=== PATIENT | male | born 1950 | race Caucasian/White ===

== ENCOUNTER 2016-09-07 21:34 | Emergency (ER) | payer MEDICARE ==
[2016-09-07] MEDS ORDERED: BABY ASPIRIN 81 MG CHEW PO ONE (21:50)
[2016-09-07] MEDS ORDERED: BABY ASPIRIN 81 MG CHEW ONE (21:57)
[2016-09-07] MEDS ORDERED: Sodium Chloride 0.9% 1000 ML 1,000 ML ONE (21:57)
[2016-09-07] MEDS ORDERED: Sodium Chloride 0.9% 1000 ML 1,000 ML IV SCH (22:00)
--- NOTE | 2016-09-07 22:02 | ERPHSYRPT ---
- History of Present Illness Time Seen by Provider: 09/07/16 21:40 Historian: patient Exam Limitations: no limitations Physician History: ABOUT 1 HOUR AGO PT STARTED WITH SHARP INTERMITTENT LEFT ANTERIOR NON-RADIATING CHEST PAIN WHICH HAS NOW SUBSIDED. PT DENIES DIAPHORESIS, NAUSEA, VOMITING, FEVER; ADMITS TO COUGH FOR THE PAST 2 DAYS PRODUCTIVE OF GABRIEL PHLEGM AND CHRONIC ABDOMINAL PAIN FOR YEARS. Aspirin Treatment Today: 81 mg x 4, provided by ED Allergies/Adverse Reactions: No Known Drug Allergies Allergy (Verified 09/07/16 22:02) Home Medications: Metoprolol Tartrate 25 mg [Lopressor 25MG Tab] 25 mg PO DAILY 09/07/16 [ History] Warfarin Sodium 5 mg [Coumadin 5 MG] 5 mg PO DAILY 09/07/16 [History] - Review of Systems Constitutional: No Fever Respiratory: Cough, No Dyspnea Cardiac: Chest Pain Abdominal/Gastrointestinal: Abdominal Pain, No Nausea, No Vomiting Endocrine: No Excessive Sweating All Other Systems: Reviewed and Negative - Physical Exam General Appearance: alert Eye Exam: PERRL/EOMI Ears, Nose, Throat Exam: pharynx normal, moist mucous membranes, other (CERUMEN OCCLUSION OF RIGHT EAR) Neck Exam: normal inspection Respiratory Exam: lungs clear Cardiovascular Exam: normal heart sounds Gastrointestinal/Abdomen Exam: soft, normal bowel sounds Back Exam: normal range of motion Extremity Exam: normal inspection, No pedal edema Neurologic Exam: alert, cooperative Skin Exam: warm, dry - Course Nursing assessment & vital signs reviewed: Yes EKG Interpreted by Me: RATE (84), Sinus Rhythm, NORMAL AXIS, Non-specific ST Changes - Radiology Exams Chest X-ray Interpretation: Interpreted by me (CM; CONGESTIVE CHANGES.) Ordered Tests: Active Orders 24 hr Category Date Time Status Machine Setter And Repairer STAT Care 09/07/16 21:50 Active EKG-ER Only STAT Care 09/07/16 21:50 Completed EKG-ER Only STAT Care 09/07/16 22:44 Active IV Insertion STAT Care 09/07/16 21:50 Active Oxygen-ED Only NASAL CANNULA 2 lpm Care 09/07/16 21:50 Active Pulse Oximetry (ED) STAT Care 09/07/16 21:50 Active CHEST 1 VIEW (PORTABLE) Stat Exams 09/07/16 21:51 Taken AMYLASE Stat Lab 09/07/16 21:55 Completed CBC W DIFF Stat Lab 09/07/16 21:55 Completed CMP Stat Lab 09/07/16 21:55 Completed LIPASE Stat Lab 09/07/16 21:55 Completed MAGNESIUM Stat Lab 09/07/16 21:55 Completed NT PRO BNP Stat Lab 09/07/16 21:55 Completed PROTIME WITH INR Stat Lab 09/07/16 21:55 Completed PTT Stat Lab 09/07/16 21:55 Completed TROPONIN Q3H Lab 09/07/16 21:55 Completed TROPONIN Q3H Lab 09/08/16 01:00 Ordered TROPONIN Q3H Lab 09/08/16 04:00 Ordered TROPONIN Q3H Lab 09/08/16 07:00 Ordered TROPONIN Q3H Lab 09/08/16 10:00 Ordered UA Stat Lab 09/07/16 21:51 Ordered Urine Triage Profile Stat Lab 09/07/16 21:51 Ordered EKG STAT RT 09/07/16 21:52 Active Medication Summary Generic Name Dose Route Start Last Admin Trade Name Freq PRN Reason Stop Dose Admin Sodium Chloride 1,000 mls @ 100 mls/hr 09/07/16 22:00 09/07/16 22:04 Sodium Chloride 0.9% 1000 Ml IV 10/07/16 21:59 100 mls/hr .Q10H EMERITA Administration Discontinued Medications Generic Name Dose Route Start Last Admin Trade Name Freq PRN Reason Stop Dose Admin Aspirin 324 mg 09/07/16 21:50 09/07/16 22:04 Baby Aspirin 81 Mg Chew PO 09/07/16 21:51 324 mg STAT ONE Administration Aspirin Confirm 09/07/16 21:57 Baby Aspirin 81 Mg Chew Administered 09/07/16 21:58 Dose 324 mg .ROUTE .STK-MED ONE Furosemide 20 mg 09/07/16 22:41 09/07/16 22:48 Lasix 40 Mg/4 Ml IV 09/07/16 22:42 20 mg STAT ONE Administration Furosemide Confirm 09/07/16 22:46 Lasix 40 Mg/4 Ml Administered 09/07/16 22:47 Dose 40 mg .ROUTE .STK-MED ONE Sodium Chloride Confirm 09/07/16 21:57 Sodium Chloride 0.9% 1000 Ml Administered 09/07/16 21:58 Dose 1,000 mls @ ud .ROUTE .STK-MED ONE Lab/Rad Data: Laboratory Result Diagrams 09/07/16 21:55 09/07/16 21:55 Laboratory Results 09/07/16 09/07/16 09/07/16 Range/Units 21:55 21:55 21:55 WBC (4.0-10.5) K/mm3 RBC (4.1-5.6) M/mm3 Hgb (12.5-18.0) gm/dl Hct (42-50) % MCV (78-100) fl MCH (26-32) pg MCHC (32-36) g/dl RDW (11.5-14.0) % Plt Count (150-450) K/mm3 MPV (6-9.5) fl Gran % (36.0-66.0) % Lymphocytes % (24.0-44.0) % Monocytes % (0.0-12.0) % Eosinophils % (0.00-5.0) % Basophils % (0.0-0.4) % Basophils # (0-0.4) INR 3.02 H (0.8-3.0) PTT 33.3 (24.1-36.1) SECONDS Sodium 140 (136-145) mEq/L Potassium 4.4 (3.5-5.1) mEq/L Chloride 106 (98-107) mEq/L Carbon Dioxide 23.9 (21-32) mEq/L Anion Gap 14.3 (5-15) MEQ/L BUN 22 H (9-20) mg/dL Creatinine 1.33 H (0.55-1.30) mg/dl Estimated GFR 57 ML/MIN Glucose 108 (70-110) MG/DL Calcium 8.7 (8.5-10.1) mg/dL Magnesium 1.8 (1.8-2.4) mg/dL Total Bilirubin 0.3 (0.2-1.0) mg/dL AST 35 (15-37) U/L ALT 38 (12-78) U/L Alkaline Phosphatase 65 (46-116) U/L Troponin I 0.055 (0.000-0.056) ng/ml NT-Pro-B Natriuret Pep 7000 H (0-125) pg/ml Serum Total Protein 6.8 (6.4-8.2) gm/dL Albumin 3.4 (3.4-5.0) g/dL Amylase 36 (25-115) U/L Lipase 123 (73-393) U/L 09/07/16 Range/Units 21:55 WBC 8.6 (4.0-10.5) K/mm3 RBC 4.75 (4.1-5.6) M/mm3 Hgb 14.4 (12.5-18.0) gm/dl Hct 43.4 (42-50) % MCV 91.4 (78-100) fl MCH 30.3 (26-32) pg MCHC 33.2 (32-36) g/dl RDW 14.8 H (11.5-14.0) % Plt Count 210 (150-450) K/mm3 MPV 10.4 H (6-9.5) fl Gran % 69.6 H (36.0-66.0) % Lymphocytes % 19.6 L (24.0-44.0) % Monocytes % 7.7 (0.0-12.0) % Eosinophils % 2.8 (0.00-5.0) % Basophils % 0.3 (0.0-0.4) % Basophils # 0.03 (0-0.4) INR (0.8-3.0) PTT (24.1-36.1) SECONDS Sodium (136-145) mEq/L Potassium (3.5-5.1) mEq/L Chloride (98-107) mEq/L Carbon Dioxide (21-32) mEq/L Anion Gap (5-15) MEQ/L BUN (9-20) mg/dL Creatinine (0.55-1.30) mg/dl Estimated GFR ML/MIN Glucose (70-110) MG/DL Calcium (8.5-10.1) mg/dL Magnesium (1.8-2.4) mg/dL Total Bilirubin (0.2-1.0) mg/dL AST (15-37) U/L ALT (12-78) U/L Alkaline Phosphatase (46-116) U/L Troponin I (0.000-0.056) ng/ml NT-Pro-B Natriuret Pep (0-125) pg/ml Serum Total Protein (6.4-8.2) gm/dL Albumin (3.4-5.0) g/dL Amylase (25-115) U/L Lipase (73-393) U/L - Progress Discussed with : Dania (TRANSFER TO [facility] - [id number]) - Departure Time of Disposition: 23:08 Departure Disposition: Transfer ([facility]) Clinical Impression: CHEST PAIN Condition: Fair Critical Care Time: No Referrals: NAOMIE BARBOUR [Primary Care Provider] -
[2016-09-07 22:15] LABS: INR 3.02 (0.8-3.0); PROTIME 32.8 SECONDS (8.83-12.87)
[2016-09-07 22:18] LABS: PTT 33.3 SECONDS (24.1-36.1)
[2016-09-07 22:20] LABS: BASOPHIL % 0.3 % (0.0-0.4); Eosinophil % 2.8 % (0.00-5.0); Granulocytes % 69.6 % (36.0-66.0); Lymphocytes % 19.6 % (24.0-44.0); Mean Cell Volume 91.4 fl (78-100); Mean Corpuscular Hemoglobin 30.3 pg (26-32); Mean Platelet Volume 10.4 fl (6-9.5); Monocytes % 7.7 % (0.0-12.0); Platelet Count 210 K/mm3 (150-450); Red Blood Count 4.75 M/mm3 (4.1-5.6); Red Cell Distribution Width 14.8 % (11.5-14.0); White Blood Count 8.6 K/mm3 (4.0-10.5)
[2016-09-07 22:33] LABS: ALBUMIN 3.4 g/dL (3.4-5.0); ANION GAP 14.3 MEQ/L (5-15); BILIRUBIN,TOTAL 0.3 mg/dL (0.2-1.0); Carbon Dioxide 23.9 mEq/L (21-32); MAGNESIUM 1.8 mg/dL (1.8-2.4); Potassium 4.4 mEq/L (3.5-5.1); Total Protein 6.8 gm/dL (6.4-8.2)
[2016-09-07] MEDS ORDERED: Lasix 40 MG/4 ML IV ONE (22:41)
[2016-09-07] MEDS ORDERED: Lasix 40 MG/4 ML ONE (22:46)
[2016-09-07 23:17] VITALS: BP 118/84; PULSE 83; O2SAT 95
[2016-09-07 23:40] LABS: COMPLETE URINE MICROSCOPIC? YES; Collection Type CLEAN CATCH; Ph 6.5 (5-6)
[2016-09-07 23:41] LABS: Bacteria RARE /HPF (NEGATIVE)
--- NOTE | 2016-09-08 08:56 | XRAY ---
Indication: Chest pain. Comparison: None Portable apical lordotic chest demonstrates cardiomegaly with previous cardiac valvular replacement surgery. There is also vascular congestion with small right effusion favoring cardiac decompensation. Bony thorax intact. Impression: Radiographic features favoring cardiac decompensation. Superimposed pneumonia not excluded.
== END 2016-09-08 00:18 | disposition short-term general hospital (02) ==
LOC: ED 21:34
DX: R07.89 Other chest pain (principal); Z79.01 Long term (current) use of anticoagulants; R05 Cough; R10.9 Unspecified abdominal pain
CPT/HCPCS: 93041; 96374; 99285; 36000; 96360; 96361; 93005; 82150; 81000; 85610; 85730; 36415; 83690; 83880; 83735; 80307; 85025; 80053; 84484; 71010; A9270; 99284; J1940

== ENCOUNTER 2017-01-08 18:30 | Emergency (ER) | payer MEDICARE ==
[2017-01-08 19:03] LABS: BASOPHIL % 0.4 % (0.0-0.4); Eosinophil % 4.8 % (0.00-5.0); Granulocytes % 59.1 % (36.0-66.0); Lymphocytes % 26.4 % (24.0-44.0); Mean Cell Volume 93.3 fl (78-100); Mean Corpuscular Hemoglobin 31.5 pg (26-32); Mean Platelet Volume 9.6 fl (6-9.5); Monocytes % 9.3 % (0.0-12.0); Platelet Count 208 K/mm3 (150-450); Red Blood Count 4.19 M/mm3 (4.1-5.6); Red Cell Distribution Width 14.7 % (11.5-14.0); White Blood Count 6.8 K/mm3 (4.0-10.5)
--- NOTE | 2017-01-08 19:14 | ERPHSYRPT ---
- History of Present Illness Time Seen by Provider: 01/08/17 19:04 Historian: patient, family Exam Limitations: no limitations Patient Subjective Stated Complaint: PT REPORTS ZULMA 3 HRS AGO HE BEGAN HAVING LEFT SIDED CHEST PAIN-BROKE OUT IN A COLD SWEAT-STATES HE IS NOT HAVING ANY PAIN AT THIS TIME-PT HAS AN EXTRENAL LIFEPAK ON ET IT DID NOT GO OFF Triage Nursing Assessment: PT PINK WARM ET DRY UPON [id number] IN COMPLETE SENTENCES WITH EASE-NO RETRACTIONS NOTED-LUNGS CLEAR ET EQUAL BILATERALLY-LEFT RADIAL PULSE REGULAR ET STRONG-CAP REFILL 3 SECONDS Physician History: The patient is a 66-year-old male with his complaining of intermittent left -sided sharp chest pain that began 3 hours ago. He is now completely chest pain -free. Each time the chest pain lasts 5-10 minutes causing sweating. He denies nausea, vomiting, or shortness of breath. He has had 4 episodes in the last 3 hours. He feels mildly fatigued after each episode. The chest pain was severe the first time but less so the ensuing 3 times. He did not take any nitroglycerin. He denies ever having a heart attack. He has an artificial aortic valve. He has been wearing an external [employer] system for the last 3 months. This system did not activate during the 4 episodes of chest pain today. He is scheduled for a defibrillator on Wednesday at [facility]. His calender roll operator is Dr. Abraham. He has cardiomyopathy with only approximately 15% ejection fraction. Timing/Duration: hour(s) (3) Activities at Onset: rest Quality: sharpness Location: substernal Chest Pain Radiation: no radiation Severity of Pain-Max: severe Severity of Pain-Current: none Modifying Factors: Improves With: nothing Associated Symptoms: diaphoresis, fatigue, No nausea, No vomiting, No palpitations, No shortness of breath Prior Chest Pain/Cardiac Workup: recently seen/treated Nitro Today/Relief: no nitro taken today Aspirin Treatment Today: no aspirin today Allergies/Adverse Reactions: No Known Drug Allergies Allergy (Verified 01/08/17 18:36) Home Medications: Metoprolol Tartrate 25 mg [Lopressor 25MG Tab] 25 mg PO DAILY 09/07/16 [ History] Warfarin Sodium 5 mg [Coumadin 5 MG] 5 mg PO DAILY 09/07/16 [History] Sacubitril/Valsartan [Entresto 24 mg-26 mg Tablet] 1 each PO DAILY 01/08/17 [ History] Hx Tetanus, Diphtheria Vaccination/Date Given: No Hx Influenza Vaccination/Date Given: No Hx Pneumococcal Vaccination/Date Given: No Immunizations Up to Date: Yes - Review of Systems Constitutional: No Fever, No Chills Eyes: No Symptoms Ears, Nose, & Throat: No Symptoms Respiratory: No Cough, No Dyspnea Cardiac: Chest Pain Abdominal/Gastrointestinal: No Abdominal Pain, No Nausea, No Vomiting, No Diarrhea Genitourinary Symptoms: No Dysuria Musculoskeletal: No Back Pain, No Neck Pain Skin: No Rash Neurological: No Dizziness, No Focal Weakness, No Sensory Changes Psychological: No Symptoms Endocrine: No Symptoms Hematologic/Lymphatic: No Symptoms Immunological/Allergic: No Symptoms All Other Systems: Reviewed and Negative - Past Medical History Pertinent Past Medical History: Yes Neurological History: No Pertinent History ENT History: No Pertinent History Cardiac History: Arrhythmia, Other Respiratory History: No Pertinent History Endocrine Medical History: No Pertinent History Musculoskeletal History: No Pertinent History GI Medical History: GERD History: No Pertinent History Psycho-Social History: No Pertinent History Male Reproductive Disorders: No Pertinent History Other Medical History: AORTIC VALVE REPLACEMENT - 2000 - Past Surgical History Past Surgical History: Yes Neuro Surgical History: No Pertinent History Cardiac: Valve Replacement Respiratory: No Pertinent History Gastrointestinal: Appendectomy, Hernia Repair Genitourinary: No Pertinent History Musculoskeletal: No Pertinent History Male Surgical History: No Pertinent History - Social History Smoking Status: Never smoker How long have you smoked: 40 YEARS Exposure to second hand smoke: No Drug Use: none Patient Lives Alone: No - Nursing Vital Signs Nursing Vital Signs: Initial Vital Signs Temperature 98.1 F Temperature Source Oral Pulse Rate [Left Radial] 70 Pulse Rate 62 Respiratory Rate 21 Blood Pressure [Right Arm] 125/76 Pain Intensity 0 - Physical Exam General Appearance: no apparent distress, alert Eye Exam: PERRL/EOMI, eyes nml inspection Ears, Nose, Throat Exam: normal ENT inspection, moist mucous membranes Neck Exam: normal inspection, non-tender, supple, full range of motion Respiratory Exam: normal breath sounds, lungs clear, No respiratory distress Cardiovascular Exam: regular rate/rhythm, murmur (III/6) Gastrointestinal/Abdomen Exam: soft, No tenderness, No mass Rectal Exam: not done Back Exam: normal inspection, No CVA tenderness, No vertebral tenderness Extremity Exam: normal inspection, normal range of motion Neurologic Exam: alert, oriented x 3, cooperative, normal mood/affect, sensation nml, No motor deficits Skin Exam: normal color, warm, dry SpO2 Interpretation: normal SpO2: 98 Oxygen Delivery: Room Air - Course EKG Interpreted by Me: RATE, Sinus Rhythm, Left [place] Deviation, NORMAL INTERVALS , NORMAL QRS, NORMAL ST-T Ordered Tests: Active Orders 24 hr Category Date Time Status Supervisor [place] STAT Care 01/08/17 18:50 Active EKG-ER Only STAT Care 01/08/17 18:50 Active IV Insertion STAT Care 01/08/17 18:50 Active Pulse Oximetry (ED) STAT Care 01/08/17 18:50 Active CHEST 1 VIEW (PORTABLE) Stat Exams 01/08/17 18:51 Taken CBC W DIFF Stat Lab 01/08/17 18:35 Completed CMP Stat Lab 01/08/17 19:00 Completed D-DIMER QUANTITATION Stat Lab 01/08/17 18:35 Completed NT PRO BNP Stat Lab 01/08/17 18:35 Completed PROTIME WITH INR Stat Lab 01/08/17 18:35 Completed PTT Stat Lab 01/08/17 18:35 Completed TROPONIN Q3H Lab 01/08/17 18:35 Completed TROPONIN Q3H Lab 01/08/17 22:00 Ordered TROPONIN Q3H Lab 01/09/17 01:00 Ordered TROPONIN Q3H Lab 01/09/17 04:00 Ordered TROPONIN Q3H Lab 01/09/17 07:00 Ordered Lab/Rad Data: Laboratory Result Diagrams 01/08/17 18:35 01/08/17 19:00 Laboratory Results 01/08/17 01/08/17 01/08/17 Range/Units 19:00 18:35 18:35 WBC (4.0-10.5) K/mm3 RBC (4.1-5.6) M/mm3 Hgb (12.5-18.0) gm/dl Hct (42-50) % MCV (78-100) fl MCH (26-32) pg MCHC (32-36) g/dl RDW (11.5-14.0) % Plt Count (150-450) K/mm3 MPV (6-9.5) fl Gran % (36.0-66.0) % Lymphocytes % (24.0-44.0) % Monocytes % (0.0-12.0) % Eosinophils % (0.00-5.0) % Basophils % (0.0-0.4) % Basophils # (0-0.4) INR 3.12 H (0.8-3.0) APTT 46.0 H (24.1-36.1) SECONDS D-Dimer < 200.00 (0.00-500.00) ng/mL Sodium 141 (136-145) mEq/L Potassium 4.2 (3.5-5.1) mEq/L Chloride 106 (98-107) mEq/L Carbon Dioxide 27.4 (21-32) mEq/L Anion Gap 12.0 (5-15) MEQ/L BUN 24 H (9-20) mg/dL Creatinine 1.47 H (0.55-1.30) mg/dl Estimated GFR 51 ML/MIN Glucose 93 (70-110) MG/DL Calcium 8.9 (8.5-10.1) mg/dL Total Bilirubin 0.30 (0.2-1.0) mg/dL AST 23 (15-37) U/L ALT 32 (12-78) U/L Alkaline Phosphatase 46 (46-116) U/L Troponin I 0.050 (0.000-0.056) ng/ml NT-Pro-B Natriuret Pep (0-125) pg/ml Serum Total Protein 6.8 (6.4-8.2) gm/dL Albumin 3.6 (3.4-5.0) g/dL 01/08/17 01/08/17 Range/Units 18:35 18:35 WBC 6.8 (4.0-10.5) K/mm3 RBC 4.19 (4.1-5.6) M/mm3 Hgb 13.2 (12.5-18.0) gm/dl Hct 39.1 L (42-50) % MCV 93.3 (78-100) fl MCH 31.5 (26-32) pg MCHC 33.8 (32-36) g/dl RDW 14.7 H (11.5-14.0) % Plt Count 208 (150-450) K/mm3 MPV 9.6 H (6-9.5) fl Gran % 59.1 (36.0-66.0) % Lymphocytes % 26.4 (24.0-44.0) % Monocytes % 9.3 (0.0-12.0) % Eosinophils % 4.8 (0.00-5.0) % Basophils % 0.4 (0.0-0.4) % Basophils # 0.03 (0-0.4) INR (0.8-3.0) APTT (24.1-36.1) SECONDS D-Dimer (0.00-500.00) ng/mL Sodium (136-145) mEq/L Potassium (3.5-5.1) mEq/L Chloride (98-107) mEq/L Carbon Dioxide (21-32) mEq/L Anion Gap (5-15) MEQ/L BUN (9-20) mg/dL Creatinine (0.55-1.30) mg/dl Estimated GFR ML/MIN Glucose (70-110) MG/DL Calcium (8.5-10.1) mg/dL Total Bilirubin (0.2-1.0) mg/dL AST (15-37) U/L ALT (12-78) U/L Alkaline Phosphatase (46-116) U/L Troponin I (0.000-0.056) ng/ml NT-Pro-B Natriuret Pep 1675 H (0-125) pg/ml Serum Total Protein (6.4-8.2) gm/dL Albumin (3.4-5.0) g/dL - Progress Progress: improved Air Movement: good Blood Culture(s) Obtained: No Antibiotics given: No Discussed with Dr.: Najera Counseled pt/family regarding: lab results, diagnosis, rad results - Departure Time of Disposition: 20:49 Departure Disposition: Transfer (Transfer to [facility] per Dr Najera.) Clinical Impression: Chest pain at rest Condition: Stable Critical Care Time: No Additional Instructions: You have chest pain at rest that has resolved. You're being transferred to [facility] where he was see your calender roll operator, Dr. Najera.
[2017-01-08 19:15] LABS: INR 3.12 (0.8-3.0); PROTIME 35.7 SECONDS (8.83-12.87)
[2017-01-08 19:43] LABS: ALBUMIN 3.6 g/dL (3.4-5.0); BILIRUBIN,TOTAL 0.3 mg/dL (0.2-1.0); Carbon Dioxide 27.4 mEq/L (21-32); Potassium 4.2 mEq/L (3.5-5.1); Total Protein 6.8 gm/dL (6.4-8.2)
--- NOTE | 2017-01-08 21:23 | XRAY ---
Indication: Chest pain. Comparison: September 15, 2016. Portable chest again demonstrates cardiomegaly with previous cardiac valvular replacement surgery. Vascularity normal. No focal infiltrate, consolidation, or large effusion. Bony thorax intact. Impression: Stable cardiomegaly. Negative for acute pneumonic process or CHF.
[2017-01-08 22:04] VITALS: BP 115/60; PULSE 64; O2SAT 94
== END 2017-01-08 22:28 | disposition short-term general hospital (02) ==
LOC: ED 18:30
DX: R07.89 Other chest pain (principal); Z79.899 Other long term (current) drug therapy; Z79.01 Long term (current) use of anticoagulants
CPT/HCPCS: 36000; 36415; 71010; 80053; 83880; 84484; 85025; 85379; 85610; 85730; 93005; 93041; 99285